=== PATIENT | male | born 1940 | race Caucasian/White ===

== ENCOUNTER → 2016-08-25 | Day surgery (SDC) | payer OTHER ==
[~2016-08-25] VITALS: Ht 167.6 cm; Wt 77.3 kg
[~2016-08-25] MED LIST: AMLO2.5T PO; ASPI1TAB69 PO; BUPIVACAINE/EPINEPHRINE 0.5% PF 30 ML VIAL ONE; FAMOTIDINE 20 MG/2 ML VIAL ONE; INSULIN HUMAN REGULAR 1,000 UNITS/10 ML VIAL SQ PRN; LACTATED RINGER'S 1000 ML IV SCH; LIDOCAINE 1%/EPINEPHrine 1:100,000 SOLN 30 ML VIAL ONE; LOSA100T PO; METOPROLOL TARTRATE 25 MG TAB PO PRN; MIDAZOLAM HCL 2 MG/2 ML VIAL ONE; OMEGCAP PO; PRIL20CA9 PO; PROPOFOL 200 MG/20 ML AMP IV ONE; SODIUM CHLORID 0.9% 500 ML IV SCH; ceFAZolin 1,000 MG/NS 100 ML IV SCH
[2016-08-25 10:41] VITALS: BP 178/79; PULSE 68; RESP 18; TEMP 97.5; O2SAT 99
[2016-08-25 10:57] LABS: AUTOMATED NEUTROPHIL # 5.5 TH/MM3 (1.8-7.7); BASOPHIL # 0.1 TH/MM3 (0-0.2); BASOPHIL % 0.8 % (0.0-2.0); EOSINOPHIL # 0.1 TH/MM3 (0-0.4); EOSINOPHIL % 1.4 % (0.0-4.0); HEMATOCRIT 40.5 % (39.0-51.0); HEMO FLAGS DIFF FINAL; LYMPHOCYTE # 1.7 TH/MM3 (1.0-4.8); MEAN CELL VOLUME 88.2 FL (80.0-100.0); MEAN CORPUSCULAR HEMOGLOBIN 30.7 PG (27.0-34.0); MEAN CORPUSCULAR HGB CONC 34.8 % (32.0-36.0); MONO % 7.4 % (0.0-8.0); NEUT % 69.4 % (16.0-70.0); PLATELET COUNT 175 TH/MM3 (150-450); RED BLOOD COUNT 4.59 MIL/MM3 (4.50-5.90); RED CELL DISTRIBUTION WIDTH 14.5 % (11.6-17.2)
[2016-08-25 11:17] LABS: POTASSIUM 4.8 MEQ/L (3.5-5.1)
[2016-08-25 13:21] VITALS: PULSE 53
[2016-08-25 14:00] VITALS: PULSE 63
[2016-08-25 14:50] VITALS: BP 180/56; PULSE 66; RESP 16; TEMP 97.7; O2SAT 99
--- NOTE | 2016-08-26 06:58 | MP ---
cc: ANGE PASTOR M.D., PH.D MARY KAY HALE DATE OF SURGERY: 08/25/2016 PREOPERATIVE DIAGNOSIS Left cephalgia/visual dysfunction - exclude temporal arteritis. POSTOPERATIVE DIAGNOSIS Left cephalgia/visual dysfunction - exclude temporal arteritis. OPERATIVE PROCEDURE Left temporal artery biopsy. SURGEON Mary Kay Hale ANESTHESIA Local MAC. DESCRIPTION OF OPERATIVE PROCEDURE With the patient in the supine position and under IV sedation the left facial and scalp areas were prepped with Betadine and draped in sterile fashion. Skin and subcutaneous tissue immediately anterior to the left ear was infiltrated with 0.5% Marcaine with epinephrine. A vertical 5 cm incision was performed through which the superficial temporal artery was mobilized, ligated proximally and distally with 4-0 silk and a 5 cm segment of the artery excised, submitted for histology. Strict hemostasis was assured. The incision was secured with continuous subcuticular 5-0 Monocryl, reinforced with Steri-Strips and covered with sterile gauze. No operative complications. The patient returned to the recovery room in stable condition having tolerated the procedure well. Mary Kay Hale MD JTS/TAMIA /5:07 PM /6:45 AM
--- NOTE | 2016-08-26 22:32 | EKG ---
Date Performed: 08/25/2016 Time Performed: 13:49:10 PTAGE: 76 years EKG: Sinus rhythm WITH 2ND DEGREE AV BLOCK, 2:1 and MOBITZ TYPE 1 MARKED LEFT AXIS DEVIATION LEFT VENTRICULAR HYPERTRO PHY AND ST-T CHANGE ABNORMAL ECG NO PREVIOUS TRACING DOCTOR: Arash Tran Interpretating Date/Time 08/26/2016 22:30:32
== END | disposition home or self-care (01) ==
LOC: HSDC 10:02
PROVIDERS: ATTEND Surgery Vascular Surgery
DX: R51 Headache (principal); H53.8 Other visual disturbances; I51.7 Cardiomegaly; I44.1 Atrioventricular block, second degree
CPT/HCPCS: 00352; 37609; 80048; 85025; 88305; 93005; J0690; J2250; J3010; J7120; 88304